=== PATIENT | female | born 1960 | race Caucasian/White ===

== ENCOUNTER 2024-07-14 07:44 | Outpatient (AMB) | payer OTHER, SELFPAY ==
[2024-07-14 07:57] VITALS: BP 130/78; PULSE 78; O2SAT 98; BMI 20.9
--- NOTE | 2024-07-14 07:57 | MHC.OFFVIS ---
Vital Signs 07/14/24 07:57 Height 5 ft 4 in Weight 121 lb 11.123 oz BMI 20.9 BP 130/78 Blood Pressure Location Lt brachial Position Sitting Pulse 78 Pulse Source Pulse Oximeter Pulse Oximetry (%) 98 Oxygen Delivery Method Room Air Intake Visit Reasons: Arthritis/CM APT Intake Note: Patent presents for follow up osteoarthritis. Patient is reqesting Meloxicam 7.5. Allergies duloxetine [From Cymbalta] Adverse Reaction (Unknown, Verified 07/14/24 08:06) seratonin syndrome fluoxetine [From Prozac] Adverse Reaction (Unknown, Verified 07/14/24 08:06) seratonin syndrome. sertraline Adverse Reaction (Unknown, Verified 07/14/24 08:06) seratonin syndrome trazadone Allergy (Mild, Uncoded 07/14/24 08:06) can't breathe through her nose HPI HPI Arthritis/CM APT: Details: She is experiencing pain in her left hand but it is tolerable at this time. Review of Systems Const All systems reviewed & are unremarkable except as noted in HPI and below Physical Exam Vital Signs: Last Vital Signs Pulse 78 07/14/24 07:57 BP 130/78 07/14/24 07:57 Pulse Ox 98 07/14/24 07:57 Oxygen Delivery Method Room Air 07/14/24 07:57 BMI result Body Mass Index 20.9 Const Other: General: Comfortable Skin: No lesions seen MSK: Squaring of bilateral CMCs left worse than right. Left CMC is tender with swelling. Heberden's nodes present. Good range of motion of fingers. Results Reviewed Results Reviewed: Recent labs reviewed, which reveal elevated ALT 40 with reference range 0 to 32, AST is 29 normal, creatinine is 0.62 with EGFR 99. Patient reports that she had liver ultrasound over the summer, which revealed hepatic steatosis. Assessment & Plan Assessment & Plan (1) Osteoarthritis of carpometacarpal (CMC) joint of both thumbs: Comment: Pain is controlled at this time with last cortisone injection. Left CMC pain is greater than right CMC pain Code(s): M18.0 - Bilateral primary osteoarthritis of first carpometacarpal joints Category: Medical Plan: Continue meloxicam 7.5 mg daily. She will take meloxicam 15 mg daily when pain increases then resume back to 7.5 mg daily Labs reviewed for drug monitoring on chronic NSAID. She has mild transaminitis likely related to hepatic steatosis. We discussed conservative management with healthy eating. She maintains a exercise regimen daily. Labs ordered for patient to have done every 3 months for drug monitoring on chronic NSAID. Patient's insurance requires labs to be done at [facility]. 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 (nsaid): Code(s): Z79.1 - nursing home (current) use of non-steroidal anti-inflammatories (NSAID) Category: Medical Plan: See above (3) Transaminitis: Code(s): R74.01 - Elevation of levels of liver transaminase levels Category: Medical Plan: See above (4) Hepatic steatosis: Code(s): K76.0 - Fatty (change of) liver, not elsewhere classified Category: Medical Plan: See above Orders: Orders Alanine Aminotransferase Today Z79.1 - nursing home (current) use of non-steroidal anti-inflammatories (NSAID) Aspartate Amino Transferase Today Z79.1 - 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 anti-inflammatories (NSAID) Creatinine Today Z79.1 - 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 anti-inflammatories (NSAID) Creatinine 01/10/25 Z79.1 - 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 anti-inflammatories (NSAID) Creatinine 04/10/25 Z79.1 - 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 anti-inflammatories (NSAID) Creatinine 01/05/26 Z79.1 - nursing home (current) use of non-steroidal anti-inflammatories (NSAID) Aspartate Amino Transferase 10/12/24 Z79.1 - nursing home (current) use of non-steroidal anti-inflammatories (NSAID) Aspartate Amino Transferase 07/09/25 Z79.1 - nursing home (current) use of non-steroidal anti-inflammatories (NSAID) Aspartate Amino Transferase 10/07/25 Z79.1 - 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 anti-inflammatories (NSAID) Aspartate Amino Transferase 04/05/26 Z79.1 - 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 anti-inflammatories (NSAID) Alanine Aminotransferase Today Z79.1 - 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 anti-inflammatories (NSAID) Alanine Aminotransferase 10/12/24 Z79.1 - 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 anti-inflammatories (NSAID) Alanine Aminotransferase 04/10/25 Z79.1 - 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 anti-inflammatories (NSAID) Alanine Aminotransferase 10/07/25 Z79.1 - nursing home (current) use of non-steroidal anti-inflammatories (NSAID) Alanine Aminotransferase 04/05/26 Z79.1 - nursing home (current) use of non-steroidal anti-inflammatories (NSAID) Creatinine Today Z79.1 - nursing home (current) use of non-steroidal anti-inflammatories (NSAID) Creatinine 10/12/24 Z79.1 - 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 anti-inflammatories (NSAID) Creatinine 07/09/25 Z79.1 - nursing home (current) use of non-steroidal anti-inflammatories (NSAID) Creatinine 10/07/25 Z79.1 - nursing home (current) use of non-steroidal anti-inflammatories (NSAID) Creatinine 04/05/26 Z79.1 - nursing home (current) use of non-steroidal anti-inflammatories (NSAID) Aspartate Amino Transferase Today Z79.1 - nursing home (current) use of non-steroidal anti-inflammatories (NSAID) Aspartate Amino Transferase 01/10/25 Z79.1 - 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 anti-inflammatories (NSAID) Aspartate Amino Transferase 04/10/25 Z79.1 - nursing home (current) use of non-steroidal anti-inflammatories (NSAID) Aspartate Amino Transferase 01/05/26 Z79.1 - 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 anti-inflammatories (NSAID) Alanine Aminotransferase 01/10/25 Z79.1 - nursing home (current) use of non-steroidal anti-inflammatories (NSAID) Alanine Aminotransferase 07/09/25 Z79.1 - nursing home (current) use of non-steroidal anti-inflammatories (NSAID) Alanine Aminotransferase 01/05/26 Z79.1 - nursing home (current) use of non-steroidal anti-inflammatories (NSAID) Medications: New meloxicam 7.5 mg PO BID 60 tabs 2RF Coding Level of Care Code Est Pt Level 3 (10194) Complex EM visit Add On G2211 Diagnoses Osteoarthritis of carpometacarpal (CMC) joint of both thumbs M18.0 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
== END 2024-07-14 08:40 | disposition home or self-care (01) ==
PROVIDERS: PCP Nurse Practitioner Family; Visit Provider Internal Medicine Rheumatology
DX: M18.0 Bilateral primary osteoarthritis of first carpometacarpal joints (principal); Z79.1 Long term (current) use of non-steroidal anti-inflammatories (NSAID); R74.01 Elevation of levels of liver transaminase levels; K76.0 Fatty (change of) liver, not elsewhere classified
CPT/HCPCS: 99213

== ENCOUNTER 2024-10-05 08:35 | Outpatient (AMB) | payer OTHER, SELFPAY ==
--- NOTE | 2024-10-05 08:36 | A.OFFVIS_ITS ---
Vital Signs 10/05/24 08:51 Height 5 ft 4 in Weight 122 lb 5.705 oz BMI 21.0 BP 160/90 H Blood Pressure Location Lt brachial Position Sitting Pulse 72 Pulse Source Pulse Oximeter Pulse Oximetry (%) 98 Oxygen Delivery Method Room Air Comment 122/68 bp retake Intake Visit Reasons: 3 mo follow up Intake Note: Patent presents for follow up osteoarthritis. Labs in chart Allergies duloxetine [From Cymbalta] Adverse Reaction (Unknown, Verified 10/05/24 08:37) seratonin syndrome fluoxetine [From Prozac] Adverse Reaction (Unknown, Verified 10/05/24 08:37) seratonin syndrome. sertraline Adverse Reaction (Unknown, Verified 10/05/24 08:37) seratonin syndrome trazadone Allergy (Mild, Uncoded 07/14/24 08:06) can't breathe through her nose HPI HPI 3 mo follow up: Details: Last cortisone injections CMCs was april 2024 ATC. Review of Systems Const All systems reviewed & are unremarkable except as noted in HPI and below Physical Exam Vital Signs: Last Vital Signs Pulse 72 10/05/24 08:51 BP 160/90 H 10/05/24 08:51 Pulse Ox 98 10/05/24 08:51 Oxygen Delivery Method Room Air 10/05/24 08:51 BMI result Body Mass Index 21.0 Const Other: General: Comfortable Skin: No lesions seen MSK: Squaring of bilateral CMCs left worse than right. Bilateral CMC tenderne ss with swelling. Heberden's nodes present. Good range of motion of fingers. Office Procedures AMB Joint Injection/Aspiration Joint Injection/Aspiration Details: Bilateral CMC joint Prep: site was prepped using aseptic technique Injected into each site: 10 mg of, Kenalog, with 0.25 mL of and 1% plain lidocaine Procedure: The patient tolerated the procedure well. Postprocedure protocol was discussed with patient. Coding - Small Joint Procedure code (CPT) selection complete AMB Joint Injection/Aspiration Coding - Small Joint Procedure code (CPT) selection complete Office Meds lidocaine (PF) 10 mg/mL (1 %) injection solution Performing Provider: Toy Bone MD [place] [facility] [place] Administered by: Toy Bone MD on 10/07/24 14:08 Dose Route Admin Location Dispensed Lot Number Expiration Date [facility] Hollow Ware Maker 2.5 mg Infiltration 2 mL [id number] [facility] Kenalog 40 mg/mL suspension for injection Performing Provider: Toy Bone MD Performing Location: [facility] [place] [facility] Administered by: Toy Bone MD on 10/07/24 14:08 Dose Route Admin Location Dispensed Lot Number Expiration Date [facility] [employer] Ware Maker 10 mg intra-articular 1 mL AP [id number] [employer] lidocaine (PF) 10 mg/mL (1 %) injection solution Performing Provider: Toy Bone MD Performing [place] [facility] [place] [facility] Administered by: Toy Bone MD on 10/07/24 14:08 Dose Route Admin Location Dispensed Lot Number Expiration Date [facility] Hollow Ware Maker 2.5 mg Infiltration 0.25 mL Kenalog 40 mg/mL suspension for injection Performing Provider: Toy Bone MD Performing Location: [facility] [place] [facility] Administered by: Toy Bone MD on 10/07/24 14:08 Dose Route Admin Location Dispensed Lot Number Expiration Date [facility] Hollow Ware Maker 10 mg intra-articular 1 mL AP [id number] [employer] Assessment & Plan Assessment & Plan (1) Osteoarthritis of carpometacarpal (CMC) joint of both thumbs: Comment: Pain is uncontrolled. Code(s): M18.0 - Bilateral primary osteoarthritis of first carpometacarpal joints Category: Medical Plan: Patient received bilateral CMC cortisone injections Continue meloxicam 7.5 mg daily. She will use meloxicam 7.5 mg b.i.d. when joint pain is uncontrolled Labs for drug monitoring on chronic NSAID up-to-date. Patient requires labs to be done at [facility] per insurance requirement OT ordered for patient to received custom bilateral CMC splint Return to clinic in 3 months (2) Benign hypermobility syndrome: Code(s): M35.7 - Hypermobility syndrome Category: Medical Plan: Continue home exercise program. She has been to physical therapy in the past for strengthening program Return to clinic in 3 months Orders: Orders AMB Joint Injection/Aspiration 10/05/24 M18.0 - Bilateral primary osteoar thritis of first carpometacarpal joints AMB Joint Injection/Aspiration 10/05/24 M18.0 - Bilateral primary osteoarthritis of first carpometacarpal joints Medications: New arm brace (Wrist Brace) As directed Bilateral CMC custom splint Dx: osteoarthritis 2 ea 0RF Changed From meloxicam 7.5 mg PO BID 60 tabs 2RF To meloxicam 7.5 mg PO BID 90 days 180 tabs 1RF Coding Level of Care Code Est Pt Level 4 (65695) Complex EM visit Add On G2211 Diagnoses Osteoarthritis of carpometacarpal (CMC) joint of both thumbs M18.0 Benign hypermobility syndrome M35.7 CPT Codes Coding - 99384 - Small joint: 97224 - Small Joint ([id number]) Coding - 40557 - Small joint: 47826 - Small Joint ([id number]) Time Spent (min) 20
[2024-10-05 08:51] VITALS: BP 160/90; PULSE 72; O2SAT 98; BMI 21.0
== END 2024-10-05 09:33 | disposition home or self-care (01) ==
PROVIDERS: PCP Nurse Practitioner Family; Visit Provider Internal Medicine Rheumatology
DX: M18.0 Bilateral primary osteoarthritis of first carpometacarpal joints (principal); M35.7 Hypermobility syndrome
CPT/HCPCS: 20600; 99214

== ENCOUNTER → 2024-10-05 08:35 | Outpatient (BNVA) | payer OTHER, SELFPAY | PROVIDERS: PCP Nurse Practitioner Family; Visit Provider Internal Medicine Rheumatology | DX: M18.0 Bilateral primary osteoarthritis of first carpometacarpal joints (principal); M35.7 Hypermobility syndrome | CPT/HCPCS: 20600; J2003; J3300 ==

== ENCOUNTER 2024-10-21 08:18 | Outpatient (RCR) | payer OTHER, SELFPAY | END 2025-05-31 09:58 | disposition home or self-care (01) | LOC: HO.OT 08:18 | PROVIDERS: PCP Nurse Practitioner Family; Visit Provider Internal Medicine Rheumatology | DX: M18.0 Bilateral primary osteoarthritis of first carpometacarpal joints (principal) | CPT/HCPCS: 29130; 97165; 97760 ==

== ENCOUNTER 2025-01-11 08:14 | Outpatient (AMB) | payer OTHER, SELFPAY ==
[2025-01-11 08:23] VITALS: BP 108/62; PULSE 89; O2SAT 99; BMI 21.2
--- NOTE | 2025-01-11 08:23 | MHC.OFFVIS ---
Vital Signs 01/11/25 08:23 Height 5 ft 4 in Weight 123 lb 8 oz BMI 21.2 BP 108/62 Blood Pressure Location Lt brachial Position Sitting Pulse 89 Pulse Source Pulse Oximeter Pulse Oximetry (%) 99 Oxygen Delivery Method Room Air Intake Visit Reasons: 3 Months Intake Note: Patent presents for follow up osteoarthritis.? Allergies duloxetine [From Cymbalta] Adverse Reaction (Unknown, Verified 01/11/25 08:24) seratonin syndrome fluoxetine [From Prozac] Adverse Reaction (Unknown, Verified 01/11/25 08:24) seratonin syndrome. sertraline Adverse Reaction (Unknown, Verified 01/11/25 08:24) seratonin syndrome trazadone Allergy (Mild, Uncoded 01/11/25 08:24) can't breathe through her nose HPI HPI 3 Months: Details: Last cortisone injection lasted 6 weeks. She has been very active with using her hands with painting her home and [employer] work. She has PT roxanne on her phone called [employer], which she is utilizing for hand exercises. She also continues to wear her brace. She uses meloxicam 7.5 mg twice a day about twice a week when pain is uncontrolled. Physical Exam Vital Signs: Last Vital Signs Pulse 89 01/11/25 08:23 BP 108/62 01/11/25 08:23 Pulse Ox 99 01/11/25 08:23 Oxygen Delivery Method Room Air 01/11/25 08:23 BMI result Body Mass Index 21.2 Const Other: General: Comfortable Skin: No lesions seen MSK: Squaring of bilateral CMCs left worse than right. Bilateral CMC tenderness with swelling. Heberden's nodes present. Good range of motion of fingers. Office Procedures AMB Joint Injection/Aspiration Joint Injection/Aspiration Details: Bilateral CMC joint Prep: site was prepped using aseptic technique Injected into each site: 10 mg of, Kenalog, with 0.25 mL of and 1% plain lidocaine Procedure: Informed verbal consent was obtained. The patient tolerated the procedure well. Postprocedure protocol was discussed with patient. Coding - Small Joint Procedure code (CPT) selection complete AMB Joint Injection/Aspiration Coding - Small Joint Procedure code (CPT) selection complete Office Meds lidocaine (PF) 10 mg/mL (1 %) injection solution Performing Provider: Toy Bone MD Performing Location: [facility] [place] [facility] Administered by: Toy Bone MD on 01/11/25 12:51 Dose Route Admin Location Dispensed Lot Number Expiration Date [facility] House Shorer 2.5 mg Infiltration 2 mL [id number] [facility] Kenalog 40 mg/mL suspension for injection Performing Provider: Toy Bone MD Performing Location: [facility] [place] [facility] Administered by: Toy Bone MD on 01/11/25 12:51 Dose Route Admin Location Dispensed Lot Number Expiration Date [place] [employer]orer 10 mg intra-articular 1 mL AP [id number] [place] [employer] lidocaine (PF) 10 mg/mL (1 %) injection solution Performing Provider: Toy Bone MD Performing Location: [facility] [place] [facility] Administered by: Toy Bone MD on 01/11/25 12:51 Dose Route Admin Location Dispensed Lot Number Expiration Date [facility] House Shorer 2.5 mg Infiltration 2 mL [id number] [facility] Kenalog 40 mg/mL suspension for injection Performing Provider: Toy Bone MD Performing Location: [facility] [place] [facility] Administered by: Toy Bone MD on 01/11/25 12:51 Dose Route Admin Location Dispensed Lot Number Expiration Date [facility] House Shorer 10 mg intra-articular 1 mL AP [id number] [place] [employer] Assessment & Plan Assessment & Plan (1) Osteoarthritis of carpometacarpal (CMC) joint of both thumbs: Comment: Pain is uncontrolled. Labs from 01/10/2025 reveal improving ALT (35 from 40 07/2024). 2023 patient reports she had an ultrasound of her liver that revealed mild hepatic steatosis. She has occasional alcohol. Code(s): M18.0 - Bilateral primary osteoarthritis of first carpometacarpal joints Category: Medical Plan: Patient received bilateral CMC cortisone injections this visit Continue meloxicam 7.5 mg daily. She will use meloxicam 7.5 mg b.i.d. when joint pain is uncontrolled Labs for drug monitoring on chronic NSAID up-to-date. Patient requires labs to be done at [facility] per insurance requirement Avoid alcohol Continue to wear bilateral CMC splints Return to clinic in 3 months (2) Benign hypermobility syndrome: Comment: Controlled with home exercise program and swimming. She recently started doing an exercise program from PT roxanne Hinge. Code(s): M35.7 - Hypermobility syndrome Category: Medical Plan: Continue home exercise program and swimming Return to clinic in 3 months Orders: Orders AMB Joint Injection/Aspiration Today M18.0 - Bilateral primary osteoarthritis of first carpometacarpal joints AMB Joint Injection/Aspiration Today M18.0 - Bilateral primary osteoarthritis of first carpometacarpal joints Medications: New lidocaine (PF) 2.5 mg (0.25 mL) Infiltration ONCE 0.25 mL 0RF M18.0 - Bilateral primary osteoarthritis of first carpometacarpal joints Kenalog (triamcinolone acetonide) 10 mg (0.25 mL) intra-articular ONCE 0.25 mL 0RF NS M18.0 - Bilateral primary osteoarthritis of first carpometacarpal joints Kenalog (triamcinolone acetonide) 10 mg (0.25 mL) intra-articular ONCE 0.25 mL 0RF NS M18.0 - Bilateral primary osteoarthritis of first carpometacarpal joints lidocaine (PF) 2.5 mg (0.25 mL) Infiltration ONCE 0.25 mL 0RF M18.0 - Bilateral primary osteoarthritis of first carpometacarpal joints Refilled meloxicam 7.5 mg PO BID 90 days 180 tabs 1RF Coding Level of Care Code Est Pt Level 3 (20438) Complex EM visit Add On G2211 Diagnoses Osteoarthritis of carpometacarpal (CMC) joint of both thumbs M18.0 Benign hypermobility syndrome M35.7 CPT Codes Coding - 88046 - Small joint: 20019 - Small Joint ([id number]) Coding - 73867 - Small joint: 39585 - Small Joint ([id number])
== END 2025-01-11 09:10 | disposition home or self-care (01) ==
LOC: HO.RHES 08:15
PROVIDERS: PCP Nurse Practitioner Family; Visit Provider Internal Medicine Rheumatology
DX: M18.0 Bilateral primary osteoarthritis of first carpometacarpal joints (principal); M35.7 Hypermobility syndrome
CPT/HCPCS: 20600; 99214

== ENCOUNTER → 2025-01-11 08:14 | Outpatient (BNVA) | payer OTHER, SELFPAY | PROVIDERS: PCP Nurse Practitioner Family; Visit Provider Internal Medicine Rheumatology | DX: M18.0 Bilateral primary osteoarthritis of first carpometacarpal joints (principal); M35.7 Hypermobility syndrome | CPT/HCPCS: 20600; J2003; J3300 ==

== ENCOUNTER 2025-04-18 07:46 | Outpatient (AMB) | payer OTHER, SELFPAY ==
[2025-04-18 07:48] VITALS: BP 140/80; PULSE 79; O2SAT 96; BMI 20.7
--- NOTE | 2025-04-18 07:48 | MHC.OFFVIS ---
Vital Signs 04/18/25 07:48 Height 5 ft 4 in Weight 120 lb 5.958 oz BMI 20.7 BP 140/80 H Blood Pressure Location Lt brachial Position Sitting Pulse 79 Pulse Source Pulse Oximeter Pulse Oximetry (%) 96 Oxygen Delivery Method Room Air Intake Visit Reasons: 3 months Intake Note: Patent presents for follow up osteoarthritis. Accompanied by: Self / Same As Patient Allergies duloxetine (From Cymbalta) Adverse Reaction (Unknown, Verified 04/18/25 07:48) seratonin syndrome fluoxetine (From Prozac) Adverse Reaction (Unknown, Verified 04/18/25 07:48) seratonin syndrome. sertraline Adverse Reaction (Unknown, Verified 04/18/25 07:48) seratonin syndrome trazadone Allergy (Mild, Uncoded 01/11/25 08:24) can't breathe through her nose HPI HPI 3 months: Details: She is having pain right wrist with managing her hair. Rotation and doing exercises learned from physical therapy in the past as contributing to pain. She is bracing. He uses meloxicam with benefit. Sometimes needs meloxicam 7.5 mg b.i.d.. Physical Exam Vital Signs: Last Vital Signs Pulse 79 04/18/25 07:48 BP 140/80 H 04/18/25 07:48 Pulse Ox 96 04/18/25 07:48 Oxygen Delivery Method Room Air 04/18/25 07:48 BMI result Body Mass Index 20.7 Const Other: General: Comfortable Skin: No lesions seen MSK: Squaring of bilateral CMCs left worse than right. Bilateral CMC tenderness without swelling. She has tenderness along the 1st extensor compartment of right wrist. Negative Ari. Heberden's nodes present. Good range of motion of fingers. Office Procedures AMB Joint Injection/Aspiration Joint Injection/Aspiration Details: Right 1st extensor compartment Prep: site was prepped using aseptic technique Injected: 10 mg of, Kenalog, with 0.25 mL of and 1% plain lidocaine Procedure: Informed verbal consent was obtained. The patient tolerated the procedure well. Postprocedure protocol was discussed with patient. Coding - Small Joint Procedure code (CPT) selection complete Office Meds lidocaine (PF) 10 mg/mL (1 %) injection solution Performing Provider: Toy Bone MD Performing Location: [facility] [place] [facility] Administered by: Aarti Jauregui RN on 04/18/25 08:30 Dose Route Admin Location Dispensed Lot Number Expiration Date [facility] Playroom Attendant 0.25 mL Infiltration 2 mL [id number] 10/31/26 32822-599-42 [employer] Total Dispensed Waste 2 mL 87.5 % Kenalog 40 mg/mL suspension for injection Performing Provider: Toy Bone MD Performing Location: [facility] [place] [facility] Administered by: Aarti Jauregui RN on 04/18/25 08:30 Dose Route Admin Location Dispensed Lot Number Expiration Date [facility] Playroom Attendant 40 mg intra-articular 1 mL [id number] 01/30/27 [address]-2 [employer] Total Dispensed Waste 1 mL 0 % Results Reviewed Results Reviewed: Reviewed labs 04/13/2025 Assessment & Plan Assessment & Plan (1) De Quervain's tenosynovitis, right: Comment: Uncontrolled pain. We discussed conservative management. Failed exercises from PT and meloxicam. Code(s): M65.4 - Radial styloid tenosynovitis [de Quervain] Category: Medical Plan: Wear thumbs because splint during the day Patient received cortisone injection to right 1st extensor compartment Continue meloxicam 7.5 mg daily. She will use meloxicam 7.5 mg b.i.d. when pain is uncontrolled Labs for drug monitoring on chronic NSAID up-to-date 04/13/2025 Return to clinic in 3 months (2) Osteoarthritis of carpometacarpal (CMC) joint of both thumbs: Comment: Pain is controlled from cortisone injections from January 2025. Code(s): M18.0 - Bilateral primary osteoarthritis of first carpometacarpal joints Category: Medical Plan: Continue meloxicam 7.5 mg daily. She will use meloxicam 7.5 mg b.i.d. when joint pain is uncontrolled Labs for drug monitoring on chronic NSAID up-to-date Continue to wear bilateral CMC splints Return to clinic in 3 months or sooner if needed. She can be scheduled an urgent visit for cortisone injection when she calls (3) Benign hypermobility syndrome: Comment: Controlled with home exercise program and swimming. She recently started doing an exercise program from PT roxanne Hinge. Code(s): M35.7 - Hypermobility syndrome Category: Medical Plan: Continue home exercise program and swimming Return to clinic in 3 months Orders: Orders AMB Joint Injection/Aspiration Today M19.049 - Primary osteoarthritis, unspecified hand Medications: Changed From meloxicam 7.5 mg PO BID 90 days 180 tabs 1RF To meloxicam Replace previous rx. 7.5 mg PO BID 180 tabs 1RF 90 days Coding Level of Care Code Est Pt Level 3 (79512) Complex EM visit Add On G2211 Diagnoses De Quervain's tenosynovitis, right M65.4 Osteoarthritis of carpometacarpal (CMC) joint of both thumbs M18.0 Benign hypermobility syndrome M35.7 CPT Codes Coding - 42999 - Small joint: - Small Joint ([id number])
== END 2025-04-18 08:30 | disposition home or self-care (01) ==
LOC: HO.RHES 07:46
PROVIDERS: PCP Nurse Practitioner Family; Visit Provider Internal Medicine Rheumatology
DX: M65.4 Radial styloid tenosynovitis [de Quervain] (principal); M18.11 Unilateral primary osteoarthritis of first carpometacarpal joint, right hand; M35.7 Hypermobility syndrome
CPT/HCPCS: 99213

== ENCOUNTER → 2025-04-18 07:46 | Outpatient (BNVA) | payer OTHER, SELFPAY | PROVIDERS: PCP Nurse Practitioner Family; Visit Provider Internal Medicine Rheumatology | DX: M19.041 Primary osteoarthritis, right hand (principal); M65.4 Radial styloid tenosynovitis [de Quervain]; M35.7 Hypermobility syndrome | CPT/HCPCS: 20600; J2003; J3301 ==